=== PATIENT | female | born 1975 | race Caucasian/White ===

== ENCOUNTER 2019-02-10 05:53 | Inpatient (IN) | payer OTHER, BC, MEDICAID ==
[2019-02-10] MEDS ORDERED: PROPOFOL 100 ML (07:11)
[2019-02-10] MEDS ORDERED: MIDAZOLAM 1 MG/ML 2 ML INJ (07:15)
[2019-02-10] MEDS ORDERED: FENTAnyl 50 MCG/ML VIAL (07:20)
[2019-02-10] MEDS ORDERED: CEFAZOLIN 1 GM INJ (07:25)
[2019-02-10] MEDS ORDERED: ONDANSETRON 4 MG INJ (07:26)
[2019-02-10] MEDS ORDERED: DEXAMETHASONE 4 MG/ML 5 ML INJ (07:26)
[2019-02-10] MEDS ORDERED: LIDOCAINE 2% (SDV) 5 ML INJ (07:26)
[2019-02-10] MEDS ORDERED: ROCURONIUM 50 MG INJ (07:26)
[2019-02-10] MEDS ORDERED: morphine 10 MG INJ (07:38)
[2019-02-10] MEDS ORDERED: MIDAZOLAM 1 MG/ML 2 ML INJ IV (08:00)
[2019-02-10] MEDS ORDERED: LABETALOL HCL 20MG INJ IV (08:00)
[2019-02-10] MEDS ORDERED: DIPHENHYDRAMINE 50 MG INJ IV ×2 (08:00→08:30)
[2019-02-10] MEDS ORDERED: EPHEDrine SULFATE 50 MG/5 ML SYG IV (08:00)
[2019-02-10] MEDS ORDERED: ONDANSETRON 4 MG INJ IV (08:00)
[2019-02-10] MEDS ORDERED: HYDROmorphONE 1 MG/5 ML IV SYRINGE IV (08:00)
[2019-02-10] MEDS ORDERED: METOCLOPRAMIDE 10 MG INJ IV (08:00)
[2019-02-10] MEDS ORDERED: hydrALAzine 20 MG INJ IV (08:00)
[2019-02-10] MEDS ORDERED: FENTAnyl 50 MCG/ML VIAL IV ×3 (08:00)
[2019-02-10] MEDS ORDERED: ALBUTEROL 0.083% (NEB) 2.5 MG/3 ML AMP HHN (08:00)
[2019-02-10] MEDS ORDERED: KETOROLAC 30 MG INJ IV ×2 (08:00→08:30)
[2019-02-10] MEDS ORDERED: OXYCODONE/ACETAMINOPHEN (5/325) TAB PO ×2 (08:00)
[2019-02-10] MEDS ORDERED: NALOXONE (0.4 MG/ML) INJ IV (08:30)
[2019-02-10] MEDS ORDERED: ZOLPIDEM 5 MG TAB PO (08:30)
[2019-02-10] MEDS ORDERED: NEOSTIGMINE 10 MG INJ (08:45)
[2019-02-10] MEDS ORDERED: GLYCOPYRROLATE 0.4 MG INJ (08:45)
[2019-02-10] MEDS: HYDROmorphONE 1 MG/5 ML IV SYRINGE IV ×2 (09:29→10:07)
[2019-02-10] MEDS: MEPERIDINE 25 MG INJ IV (09:43)
[2019-02-10] MEDS: HYDROmorphONE 0.2 MG/ML PCA IV (10:13)
[2019-02-10] MEDS: LACTATED RINGER'S 1,000 ML IV ×2 (11:13→17:30)
[2019-02-10] MEDS: ONDANSETRON 4 MG INJ IV (19:32)
[2019-02-11] MEDS: LACTATED RINGER'S 1,000 ML IV ×4 (00:43→17:30)
[2019-02-11] MEDS: ONDANSETRON 4 MG INJ IV (05:19)
[2019-02-11] MEDS: MAGNESIUM HYDROXIDE 30ML CUP PO ×2 (05:50→13:13)
[2019-02-11] MEDS: BISACODYL 10 MG SUPP PR ×2 (05:51→13:15)
[2019-02-11] MEDS: HYDROCODONE/APAP (5/325) TAB PO ×3 (10:03→20:05)
[2019-02-11 11:08] LABS: ADD MAN DIFF? NO
[2019-02-11 11:09] LABS: WHITE BLOOD COUNT 17.9 10^3/ul (4.8-10.8)
[2019-02-11 11:09] LABS: BASOPHILS % 0.2 % (0.0-2.0); EOSINOPHILS % 0.2 % (0.0-7.0); HEMATOCRIT 33.9 % (37.0-47.0); HEMOGLOBIN 11.5 g/dl (12.0-16.0); LYMPHOCYTES # 2.4 10^3/ul (0.8-2.9); LYMPHOCYTES % 13.4 % (15.0-51.0); MEAN CORPUSCULAR HEMOGLOBIN 30.7 pg (29.0-33.0); MEAN CORPUSCULAR HGB CONC 33.9 g/dl (32.0-37.0); MEAN CORPUSCULAR VOLUME 90.6 fl (82.0-101.0); MONOCYTES % 5.7 % (0.0-11.0); NEUTROPHIL # 14.3 10^3/ul (1.6-7.5); NEUTROPHILS % 79.7 % (39.0-77.0); PLATELET COUNT 228 10^3/UL (140-415); RED BLOOD COUNT 3.74 10^6/ul (4.20-5.40); RED CELL DISTRIBUTION WIDTH 12.1 % (11.5-14.5)
[2019-02-11 11:26] LABS: ALANINE AMINOTRANSFERASE 23 IU/L (13-69); ALBUMIN 3.4 g/dl (3.3-4.9); ALBUMIN/GLOBULIN RATIO 1.17; ALKALINE PHOSPHATASE 64 IU/L (42-121); ANION GAP 7 (5-13); ASPARTATE AMINO TRANSFERASE 32 IU/L (15-46); BILIRUBIN,INDIRECT 0.4 mg/dl (0-1.1); BILIRUBIN,TOTAL 0.4 mg/dl (0.2-1.3); BLOOD UREA NITROGEN 10 mg/dl (7-20); CALCIUM 8.5 mg/dl (8.4-10.2); CARBON DIOXIDE 27 mmol/L (21-31); CHLORIDE 106 mmol/L (97-110); CREATININE 0.64 mg/dl (0.44-1.00); Estimated GFR > 60 mL/min (>60); GLUCOSE 100 mg/dl (70-220); POTASSIUM 4.1 mmol/L (3.5-5.1); SODIUM 140 mmol/L (135-144); TOTAL PROTEIN 6.3 g/dl (6.1-8.1)
[2019-02-11] MEDS ORDERED: MAGNESIUM HYDROXIDE 30ML CUP PO (17:00)
[2019-02-11] MEDS ORDERED: BISACODYL 10 MG SUPP PR (17:00)
[2019-02-12] MEDS: LACTATED RINGER'S 1,000 ML IV (01:30)
[2019-02-12] MEDS: HYDROCODONE/APAP (5/325) TAB PO ×4 (03:01→17:49)
[2019-02-12 07:30] LABS: ADD MAN DIFF? NO
[2019-02-12 07:44] LABS: WHITE BLOOD COUNT 10.3 10^3/ul (4.8-10.8)
[2019-02-12 07:44] LABS: BASOPHIL # 0.1 10^3/ul (0.0-0.1); BASOPHILS % 0.5 % (0.0-2.0); EOSINOPHILS # 0.3 10^3/ul (0.0-0.5); EOSINOPHILS % 2.6 % (0.0-7.0); HEMATOCRIT 30.6 % (37.0-47.0); HEMOGLOBIN 10.2 g/dl (12.0-16.0); LYMPHOCYTES # 2.4 10^3/ul (0.8-2.9); LYMPHOCYTES % 22.8 % (15.0-51.0); MEAN CORPUSCULAR HEMOGLOBIN 30.9 pg (29.0-33.0); MEAN CORPUSCULAR HGB CONC 33.3 g/dl (32.0-37.0); MEAN CORPUSCULAR VOLUME 92.7 fl (82.0-101.0); MEAN PLATELET VOLUME 9.3 fl (7.4-10.4); MONOCYTE # 0.7 10^3/ul (0.3-0.9); MONOCYTES % 6.5 % (0.0-11.0); NEUTROPHIL # 6.9 10^3/ul (1.6-7.5); NEUTROPHILS % 67.1 % (39.0-77.0); PLATELET COUNT 189 10^3/UL (140-415); RED CELL DISTRIBUTION WIDTH 12.6 % (11.5-14.5)
[2019-02-12 08:06] LABS: ALANINE AMINOTRANSFERASE 25 IU/L (13-69); ALBUMIN/GLOBULIN RATIO 1.15; ALKALINE PHOSPHATASE 54 IU/L (42-121); ANION GAP 4 (5-13); ASPARTATE AMINO TRANSFERASE 30 IU/L (15-46); BILIRUBIN,INDIRECT 0.3 mg/dl (0-1.1); BILIRUBIN,TOTAL 0.3 mg/dl (0.2-1.3); BLOOD UREA NITROGEN 9 mg/dl (7-20); CALCIUM 8.1 mg/dl (8.4-10.2); CARBON DIOXIDE 26 mmol/L (21-31); CHLORIDE 109 mmol/L (97-110); CREATININE 0.62 mg/dl (0.44-1.00); Estimated GFR > 60 mL/min (>60); GLUCOSE 86 mg/dl (70-220); POTASSIUM 3.8 mmol/L (3.5-5.1); SODIUM 139 mmol/L (135-144); TOTAL PROTEIN 5.6 g/dl (6.1-8.1)
[2019-02-12] MEDS: MAGNESIUM HYDROXIDE 30ML CUP PO (15:23)
[2019-02-12] MEDS: BISACODYL 10 MG SUPP PR (15:26)
[2019-02-13] MEDS ORDERED: IBUPROFEN 800 MG TAB PO (14:00)
== END 2019-02-12 19:55 | disposition home or self-care (01) | DRG 743 ==
LOC: REC 05:53 → 5EC 02-11 15:20 → MS3 13:35
PROVIDERS: Obstetrics & Gynecology
PROC: 0UT90ZL Resection of Uterus, Supracervical, Open Approach (ICD-10-PCS; principal; 2019-02-10 07:13)
PROC: 0UT10ZZ Resection of Left Ovary, Open Approach (ICD-10-PCS; 2019-02-10 07:13)
PROC: 0UT60ZZ Resection of Left Fallopian Tube, Open Approach (ICD-10-PCS; 2019-02-10 07:13)
PROC: 0UBC0ZZ Excision of Cervix, Open Approach (ICD-10-PCS; 2019-02-10 07:13)
PROC: 0TNB0ZZ Release Bladder, Open Approach (ICD-10-PCS; 2019-02-10 07:13)
PROC: 0USG0ZZ Reposition Vagina, Open Approach (ICD-10-PCS; 2019-02-10 07:13)
DX: D25.9 Leiomyoma of uterus, unspecified (principal); N92.0 Excessive and frequent menstruation with regular cycle; N81.89 Other female genital prolapse; N73.6 Female pelvic peritoneal adhesions (postinfective); D64.9 Anemia, unspecified; D28.2 Benign neoplasm of uterine tubes and ligaments
CPT/HCPCS: 80053; 84702; 85025; 86850; 86900; 86901; 88305